=== PATIENT | female | born 2000 | race Hispanic/Latino ===

== ENCOUNTER 2024-11-19 22:18 | Emergency (ER) | payer OTHER, SELFPAY ==
[2024-11-19 22:39] VITALS: BP 134/70; PULSE 90; RESP 18; TEMP 36.6; O2SAT 99; BMI 37.1
--- NOTE | 2024-11-19 23:02 | DI.RAD.S_ITS ---
PROCEDURE: XR ANKLE LT MIN 3V INDICATIONS: hx ankle fx; intermittent sharp pains lately TECHNIQUE: 3 views of the ankle were acquired. COMPARISON: None. FINDINGS AND IMPRESSION: Plate/screw fixation throughout the distal fibula and medial malleolus. No acute displaced fracture or dislocation. Expected hardware positioning radiographically, though no comparisons are available for review. No suspicious soft tissue calcifications. If there is high concern for occult injury, consider repeat radiography or cross-sectional imaging. Dictated by: Williams Wilkerson M.D. on 11/20/2024 at 0:13 Approved by: Williams Wilkerson M.D. on 11/20/2024 at 0:14
[2024-11-20 01:30] VITALS: BP 128/60; PULSE 77; RESP 16; O2SAT 98
== END 2024-11-20 01:52 | disposition left against medical advice (07) ==
PROVIDERS: Emergency Provider Emergency Medicine
DX: M25.572 Pain in left ankle and joints of left foot (principal); Z98.890 Other specified postprocedural states; Z87.81 Personal history of (healed) traumatic fracture
CPT/HCPCS: 73610; 99281